=== PATIENT | male | born 1985 | race Caucasian/White ===

== ENCOUNTER 2018-09-15 07:32 | Emergency (ER) | payer SELFPAY ==
[~2018-09-15] VITALS: Ht 172.7 cm; Wt 100.0 kg
[2018-09-15] MEDS ORDERED: KETOROLAC 60MG/2ML VIAL IM ONE (08:00)
[2018-09-15 08:12] VITALS: BP 140/90
== END 2018-09-15 09:35 | disposition home or self-care (01) ==
LOC: ER 07:57 → EDSEX 07:57 → ER 09:35
DX: M25.561 Pain in right knee (principal); R07.89 Other chest pain; M54.2 Cervicalgia; V49.49XA Driver injured in collision with other motor vehicles in traffic accident, initial encounter; Y93.89 Activity, other specified; Y92.410 Unspecified street and highway as the place of occurrence of the external cause
CPT/HCPCS: 73560; 73590; 96372; 99283; J1885

== ENCOUNTER 2025-02-07 14:37 | Emergency (ER) | payer SELFPAY ==
[~2025-02-07] VITALS: Ht 175.3 cm; Wt 75.0 kg
[2025-02-07 14:46] VITALS: O2SAT 99
[2025-02-07] MEDS: FLUORESCEIN SODIUM 1MG/STRIP BOTHEYE ONE (15:21)
[2025-02-07] MEDS: TETRACAINE 0.5% OPHTH DROPS 4ML BOTHEYE ONE (15:21)
[2025-02-07] MEDS: LORAZEPAM 0.5MG TABLET PO ONE ×2 (15:55)
[2025-02-07 17:54] LABS: BASOPHILS % 0.5 % (0.0-2.0); EOSINOPHILS % 1.0 % (0.0-5.0); HEMATOCRIT. 43.1 % (42.0-52.0); HEMOGLOBIN. 15.0 g/dL (14.0-18.0); LYMPHOCYTES % 31.5 % (20.0-50.0); MEAN PLATELET VOLUME 7.8 fl (7.4-10.4); MONOCYTES % 8.9 % (2.0-8.0); NEUTROPHILS % 58.1 % (40.0-76.0); PLATELET 271 x1000/uL (130-400); RED BLOOD CELL COUNT 5.05 mill/uL (4.7-6.1); RED CELL DISTRIBUTION WIDTH 12.9 % (11.6-14.6)
[2025-02-07] MEDS: IBUPROFEN 800MG TABLET PO ONE (17:59)
[2025-02-07] MEDS: ACETAMINOPHEN 325MG TABLET PO ONE (17:59)
[2025-02-07] MEDS: SODIUM CHLORIDE 0.9% (SEPSIS BOLUS) IV ONE (18:01)
[2025-02-07 18:07] LABS: CREATININE 1.0 mg/dL (0.6-1.3)
[2025-02-07 18:08] LABS: PROTEIN TOTAL 7.0 g/dL (6.0-8.3); UREA NITROGEN BLOOD 7 mg/dL (9-23)
[2025-02-07 18:09] LABS: ASPARTATE AMINOTRANSFERASE 13 IU/L (<34)
[2025-02-07 18:10] LABS: BILIRUBIN DIRECT 0.2 mg/dL (<=3.0); BILIRUBIN TOTAL 0.7 mg/dL (0.1-1.0)
[2025-02-07] MEDS ORDERED: OCUFLX LEFTEYE (18:17)
[2025-02-07] MEDS ORDERED: AMOX1TAB16 MT (18:17)
[2025-02-07] MEDS ORDERED: METF-907 MT (18:25)
[2025-02-07] MEDS: METFORMIN HCL 500MG TABLET PO ONE (19:46)
[2025-02-07 19:49] VITALS: BP 132/90; PULSE 82; RESP 16; TEMP 36.9; O2SAT 100
== END 2025-02-07 19:52 | disposition home or self-care (01) ==
LOC: ER 14:37
DX: H10.32 Unspecified acute conjunctivitis, left eye (principal); E11.65 Type 2 diabetes mellitus with hyperglycemia
CPT/HCPCS: 80076; 80048; 83605; 85025; 36415; 84145; 99284; Z7610 ×2; 96360; 96361; J7030